=== PATIENT | male | born 1975 | race Caucasian/White ===

== ENCOUNTER 2024-11-29 11:59 | Observation (INO) | payer BC, SELFPAY ==
--- NOTE | 2024-11-29 12:07 | PC.NURSE ---
arrived by stretcher from [facility]
[2024-11-29 12:08] VITALS: BP 147/100; PULSE 59; RESP 19; TEMP 36.8; O2SAT 97; BMI 33.9
--- NOTE | 2024-11-29 12:12 | ECG_ITS ---
APPROVED REPORT Exam: Resting ECG HR:57 bpm ECG Measurements Heart Rate 57 AXES WY 152 P 11 QRSd 74 QRS 13 QT 407 T 23 QTc 402 Conclusion SINUS BRADYCARDIA Late r wave progression ABNORMAL ECG UNCONFIRMED REPORT Electronically signed by : Esau Stout MD 11/30/2024 08:08:36
[2024-11-29 12:14] VITALS: PULSE 60
[2024-11-29 12:42] LABS: Basophils # 0.1 K/mm3 (0-0.2); Eosinophils # 0.1 Kmm3 (0.0-0.4); Eosinophils % 1.8 % (0.1-12.0); Hematocrit 41.3 % (42.0-52.0); Hemoglobin 13.8 g/dL (14.1-18.0); Immature Granulocytes # 0.02 10^3uL; Immature Granulocytes % 0.3 %; Lymphocytes # 2.5 K/mm3 (0.7-4.5); Lymphocytes % 30.9 % (10-50); Mean Corpuscular HGB Conc 33.4 g/dL (31.8-35.4); Mean Corpuscular Hemoglobin 30.5 pg (27.0-31.2); Mean Corpuscular Volume 91.4 fl (80-94); Mean Platelet Volume 8.7 fl (7.4-10.4); Monocytes # 0.4 K/mm3 (0.1-1.0); Monocytes % 5.5 % (1.7-9.3); Neutrophils # 4.9 K/mm3 (1.8-7.8); Neutrophils % 60.5 % (37.0-80.0); Nucleated Red Blood Cells # 0 10^3/uL; Nucleated Red Blood Cells % 0 %; Platelet Count 290 K/mm3 (142-424); Red Blood Count 4.52 M/mm3 (4.60-6.20); Red Cell Distribution Width 13.3 % (11.5-17.5); Red Cell Distribution Width-SD 45.4 fL
[2024-11-29 13:00] VITALS: BP 145/99; PULSE 61; RESP 19; O2SAT 96
[2024-11-29 13:05] LABS: Alanine Aminotransferase 24 U/L (12-78); Albumin Level 4.3 g/dl (3.5-5.0); Albumin/Globulin Ratio 1.8 (1.1-1.8); Alkaline Phosphatase 140 U/L (38-126); Anion Gap 4.1 mEq/L (5-15); Aspartate Amino Transferase 25 U/L (17-59); Bilirubin,Total 0.5 mg/dl (0.2-1.3); Blood Urea Nitrogen 9 mg/dl (9-20); Calcium 9.4 mg/dl (8.4-10.2); Carbon Dioxide 30 mmol/L (22.0-30.0); Chloride 106 mmol/L (98-107); Chol/HDL Ratio 3.5 (1-3.5); Cholesterol 116 mg/dl (140-200); Creatinine Clearance Estimated 147 mL/min (50-200); Estimated Glomerular Filt Rate 80 ml/min (>60); GFR (African American) 97 ML/MIN (>60); Globulin 2.4 g/dL (1.3-3.2); Glucose 92 mg/dl (74-100); HDL Cholesterol 33 mg/dl (40-60); Magnesium 2.1 mg/dl (1.6-2.3); Potassium 4.1 mmoL/L (3.5-5.1); Sodium 136 mmol/L (136-145); Total Protein,Serum 6.7 g/dl (6.3-8.2); Triglycerides 113 mg/dl (30-150); VLDL Cholesterol 23 mg/dL (0-40)
--- NOTE | 2024-11-29 13:16 | HMH.PHAINT1 ---
Pharmacy Intervention Comments: HOME MEDICATION LIST VERIFIED USING LIST FROM OUTPATIENT PHARMACY AND PT INTERVIEW
[2024-11-29 13:17] LABS: NT Pro Brain Natriuretic Pep. 164 pg/mL (0-125)
--- NOTE | 2024-11-29 13:18 | CA_ITS ---
APPROVED REPORT EXAM: Comprehensive 2D, Doppler, and color-flow Echocardiogram [employer] Mechanic: Inez Valera CRT Ht: 6 ft 0 in Wt: 250lbs BSA: 2.34 BP: 147/100 mmHg Indications: Chest Pain, Shortness of Breath, Hyperlipidemia, Hypertension/HDD, Smoker, hx TIA 2D Dimensions LA Volume 49.00 mL LA Volume Index 20.060876 mL/m2 (M/F) 16-34 M-Mode Dimensions RVDd 2.96 cm (0.9-2.6) LA Diam 3.73 cm (1.9-4.0) LVDd 4.75 cm (3.5-5.7) LVDs 2.82 cm (3.5-5.7) IVSd 1.89 cm (0.6-1.1) PWd 0.93 cm (0.6-1.1) EF (Teich) 71.30% FS 40.60% EDV (Teich) 104.90 mL TAPSE 1.65 (<1.7) ESV (Teich) 30.10 mL LV Diastology E Decel Time 157 (160-240 msec) E/A Ratio 1.20 MED A' 9.90 cm/s LAT A' 10.20 cm/s Aortic Valve AO Peak GR. 5.20 mmHg Mitral Valve MV E Max Juanjose. 92.0 (40-130 cm/s) MV A Velocity 77.0 (40-130 cm/s) E/A Ratio 1.20 MV PHT 46.0 ms Pulmonary Valve PV Peak Velocity 84.0 (50-150 cm/s) Tricuspid Valve TR P. Velocity 352.00 cm/s RAP Estimate 10.00 mmHg RVSP 59.40 mmHg Left Ventricle The left ventricle is normal size. The left ventricular systolic function is normal. The left ventricular ejection fraction is within the normal range. There is increased overall thickness. There is normal LV segmental wall motion. The left ventricular diastolic function is normal. LVEF is 55%. Right Ventricle Right ventricle is mildly dilated. The right ventricular systolic function is normal. Atria The left atrium size is normal. The right atrium size is normal. There is no Doppler evidence of interatrial shunt. Aortic Valve Aortic valve opens well. There is no aortic valvular stenosis. No aortic regurgitation is present. Mitral Valve The mitral valve is normal in structure. No evidence of mitral valve stenosis. There is no mitral valve regurgitation noted. Tricuspid Valve Tricuspid valve is grossly normal in structure and function. Trace tricuspid regurgitation. There is insufficient TR jet to estimate RVSP. Pulmonic Valve The pulmonary valve is normal in structure. Trace pulmonic regurgitation. Great Vessels The aortic root is normal in size. IVC is normal in size and collapses >50% with inspiration. Pericardium There is no pericardial effusion. Other Information Study Quality: Fair Conclusion Normal biventricular systolic function. Mild RV dilation. No significant valvular stenosis or regurgitation. Electronically signed by : Danielle Rodriguez MD 11/29/2024 15:14:56
--- NOTE | 2024-11-29 13:28 | CT_ITS ---
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 A noncontrast coronary calcium scan was performed. A CT attenuation threshold of 130 Hounsfield units (HU) was used for the detection of calcium in contiguous voxels of 1 sq mm in area to be counted as individual lesions. Bolus tracking in the ascending aorta with a threshold of 180 HU was performed. Immediately afterwards, ECG synchronized cardiac CT was then performed from the cardiac base to apex using retrospective gating with ECG tube current modulation. A total of 85 mL of Isovue 370 mg/mL contrast medium was administered at 5 mL/sec followed by a saline flush using a biphasic injection protocol. A tube voltage of 120 KVp was used. The average heart rate at the time of acquisition was 63 bpm and regular. Image Reconstruction Transaxial images were reconstructed at 0.67 mm slide thickness. Data was reviewed interactively on an advanced workstation capable of 2 and 3-dimensional displays in all conventional reconstruction formats, including multiplanar reformations, maximum intensity projections, curved multiplanar reformations, and volume rendered reconstructions. When applicable, selected routine images describing the relevant coronary anatomy and pathology were saved and sent to PACS. Complications None Technical Quality Overall image quality was good. Coronary artery opacification was adequate. Total DLP (Dose-Length Product) is 1611.0 mGy-cm. The reported value represents the total of one or more individual components during the CT acquisition of this date and at this time, and as such, the same value may appear in more than one CT report depending on the interpreting/reporting physicians. COMPARISON None FINDINGS CT Coronary Calcium Scoring LMA (Left Main Artery) = 0 LAD (Left Anterior Descending) = 4 LCX (Left Coronary Circumflex) = 0 RCA (Right Coronary Artery) = 0 Total Calcium Score = 4 using the AJ-130 method. The observed calcium score of 4 is at 73rd percentile for subjects of the same age, sex, and race/ethnicity. The interpretation of the calcium heart score is based on the following continuum*: 0 = no calcified plaque detected (risk of coronary artery disease is very low ??? less than 5%) 1-10 = calcium detected in extremely minimal levels (risk of coronary diseases is still low ??? less than 10%) 11-100 = mild levels of plaque detected with certainty (mild or minimal narrowing of heart arteries is likely) 101-400 = definite,at least moderate levels of plaque detected (relatively high risk of a heart attack within 3-5 years) >401-999 = extensive levels of plaque detected (high risk of heart attack, high levels of vascular disease are present, high likelihood of at least one significant coronary narrowing) *The calcium heart score quantifies the burden of coronary calcification/plaque in the coronary arteries. The calcium heart score is not able to evaluate the presence or burden of non-calcified (i.e. soft) plaque. There is no identifiable calcification in the aortic valve, mitral annulus or mitral valve, pericardium, or myocardium. Coronary CT Angiography The coronary arterial system is left dominant. Quantitative Stenosis Grading: Left Main (LM): The left main originates normally from the left sinus of Valsalva. The LM bifurcates into the left anterior descending artery and left circumflex artery. The LM is patent with no evidence of atherosclerosis. Left Anterior Descending (LAD) and Diagonal Branches: The LAD gives off 3 diagonal branch(es). There is 1 focus of mixed calcified/noncalcified plaque in the proximal LAD, with < 25% luminal stenosis. There is no evidence of LAD-myocardial bridge. Left Circumflex (LCX) and Obtuse Marginals (OM): The LCX gives off 2 Obtuse Marginal (OM) branch(es). The LCX and its branches are patent with no evidence of atherosclerosis. Right Coronary Artery (RCA): The RCA originates normally from the right sinus of Valsalva. The RCA is a small caliber vessel. The RCA and its branches are patent with no evidence of atherosclerosis. Non-Coronary Cardiac Findings: Analysis of the left ventricular (LV) structure and function was performed after 3-D reconstruction of the LV from axial images, with user-corrected automatic contouring for assessment of LV volumes and user-defined reconstruction from oblique planes for measurement of 3-D cardiac structure and function. -The left ventricle systolic function is normal. -There is no left atrial appendage filling defect. Two right pulmonary veins and two left pulmonary veins drain normally into the left atrium. -No pericardial thickening or calcification. -Central and branch pulmonary arteries in the [id number] are unremarkable. -Thoracic aorta within the visualized thoracic aortic-branches in the [id number] is unremarkable. Extracardiac Structures No significant extra-cardiac findings. Note, however, that this study is focused on the cardiac findings. IMPRESSION -Presence of coronary calcification with an Agatston score = 4 using the AJ-130 method. -The observed calcium score of 4 is at 73rd percentile for subjects of the same age, sex, and race/ethnicity. -No evidence of significant flow-limiting atherosclerosis of the coronary arteries. -CAD-RADS 1. Management recommendations per ACC/AHA guidelines*, as clinically appropriate. *Recommendations: CAD RADS 0: Reassurance. Consider non-atherosclerotic causes of chest pain. CAD RADS 1: Consider non-atherosclerotic causes of chest pain. Consider preventive therapy and risk factor modification. CAD RADS 2: Consider non-atherosclerotic causes of chest pain. Consider preventive therapy and risk factor modification, particularly for patients with nonobstructive plaque in multiple segments. CAD RADS 3: Consider further functional testing. Consider symptom-guided anti-ischemic and preventive pharmacotherapy as well as risk factor modification per published guideline statements. CAD RADS 4A: Consider further functional testing or invasive coronary angiography with revascularization per published guideline statements. Consider symptom-guided anti-ischemic and preventive pharmacotherapy as well as risk factor modification per published guideline statements. CAD RADS 4B: Invasive coronary angiography recommended with revascularization per published guideline statements. Consider symptom-guided anti-ischemic and preventive pharmacotherapy as well as risk factor modification per published guideline statements. CAD RADS 5: Consider invasive angiography and/or viability assessment with revascularization per published guideline statements. Consider symptom-guided anti-ischemic and preventive pharmacotherapy as well as risk factor modification per published guideline statements. CRITICAL RESULT None COMMUNICATION Per this written report The coronary and cardiac findings of this CCTA were reviewed, reported, and signed by Noble Rodriguez MD (Facs Teacher) Conclusion Electronically signed by : Danielle Rodriguez MD 11/29/2024 14:32:14
[2024-11-29 13:29] LABS: Troponin I 0.01 ng/ml (0.00-0.034)
[2024-11-29 13:36] LABS: Thyroid Stimulating Hormone 2.21 uIU/mL (0.465-4.68)
--- NOTE | 2024-11-29 13:42 | P.CONCA_ITS ---
History of Present Illness History of Present Illness Consult date: 11/29/24 Requesting physician: Aung Lackey Consult reason: chest pain Chief complaint: chest pain History of present illness: This is a 49-year-old white gentleman who presented to the emergency department at [facility] with complaints of chest pain. He states that he was at work today and went outside to smoke when he was coming back up the stairs he said he had a sudden onset of weakness. He states that he felt like he was going to pass out but never had a syncopal episode. He states he just got really weak and this lasted for about 2 minutes and then he had sudden onset of chest pain. He describes this as a tightness sensation in the substernal aspect of his chest. It did not radiate. It was associated with shortness of breath. He rated this as 7 out of 10 in intensity. He states that this lasted until he arrived at [facility] and was treated with aspirin. He states that he was given 3 aspirin and a nitro glycerin sublingual and his chest pain did improve. He had a high-sensitivity troponin that was positive there so he was transferred here to [facility]. Since being here he denies any recurrence of his chest pain. His troponin here is negative. He denies any history of heart disease personally. He also denies any family history of MD. His mother does have atrial fibrillation and hypertension. The patient states that he does have high blood pressure that he does not check regularly. He also smokes 1 pack/day. [facility] Disclaimer: The information contained in this section may have been updated after the patient was seen, as this information can be updated by other users. Medical History (Updated 11/29/24 @ 13:46 by Rissa Lama APRN) Obesity SOB (shortness of breath) on exertion Smoker Hyperlipidemia Chest pain History of transient ischemic attack (TIA) Hypertension Surgical History (Updated 11/29/24 @ 12:29 by Rama Porter RN) History of appendectomy Family History (Updated 11/29/24 @ 13:50 by Rissa Lama APRN) Mother Other persistent atrial fibrillation Other Family history of hypertension Social History (Updated 11/29/24 @ 13:51 by Rissa Lama APRN) Smoking Status: Current every day smoker alcohol intake: never current occupational status: employed Travel in the last 8 weeks?: None Have you lived/traveled outside [place] in past 30 days?: No Contact w/someone who lives/traveled outside US past 30 days?: No Exposure to someone with infectious disease in past 14 days?: No Do you have a fever (greater than 100.4 F or 38 C)?: No Have you tested positive for COVID-19?: No Exposed to someone with COVID-19 in past 14 days?: No Do you have a sore throat?: No Do you have a cough?: No Do you have any weakness?: No Do you have any diarrhea?: No Are you experiencing any unusual bleeding?: No Do you have any muscle aches/pain?: No Do you have any abdominal pain?: No Are you experiencing loss of taste or smell?: No Review of Systems Review of Systems Review of systems:: pertinent systems reviewed and negative unless documented below Constitutional Constitutional: Reports system reviewed and no additional complaints, except as documented, Reports lethargy and Reports weakness Eyes Eyes: Reports system reviewed and no additional complaints, except as documented ENT Ears, Nose, Mouth, and Throat: Reports system reviewed and no additional compl aints, except as documented *Cardiovascular Cardiovascular: Reports system reviewed and no additional complaints, except as documented, Reports chest pain, Reports chest pain at rest, Reports chest pain with activity, Reports dyspnea and Reports dyspnea on exertion *Respiratory Respiratory: Reports system reviewed and no additional complaints, except as documented, Reports dyspnea and Reports dyspnea on exertion *Gastrointestinal Gastrointestinal: Reports system reviewed and no additional complaints, except as documented *Genitourinary Genitourinary: Reports system reviewed and no additional complaints, except as documented *Musculoskeletal Musculoskeletal: Reports system reviewed and no additional complaints, except as documented Integumentary/Breasts Skin/Breast: Reports system reviewed and no additional complaints, except as documented *Neurologic Neurologic: Reports system reviewed and no additional complaints, except as documented and Reports weakness Psychiatric Psychiatric: Reports system reviewed and no additional complaints, except as documented Endocrine Endocrine: Reports system reviewed and no additional complaints, except as doc umented Hematologic/Lymphatic Hematologic/Lymphatic: Reports system reviewed and no additional complaints, except as documented Allergic/Immunologic Allergic/Immunologic: Reports system reviewed and no additional complaints, except as documented Exam Data for Last 24 hours Vital signs and Labs for Last 24 Hours: Temp Pulse Resp BP Pulse Ox O2 Del Method 98.2 F 59 L 19 147/100 H 97 Room Air 11/29/24 12:08 11/29/24 12:08 11/29/24 12:08 11/29/24 12:08 11/29/24 12:08 11/29/24 12:20 Laboratory Results - last 24 hr 11/29/24 12:34: WBC 8.0, RBC 4.52 L, Hgb 13.8 L, Hct 41.3 L, MCV 91.4, MCH 30.5, MCHC 33.4, RDW 13.3, Plt Count 290, MPV 8.7, Neut % (Auto) 60.5, Lymph % (Auto) 30.9, Pinal % (Auto) 5.5, Eos % (Auto) 1.8, Baso % (Auto) 1.0, Neut # (Auto) 4.9, Lymph # (Auto) 2.5, Pinal # (Auto) 0.4, Eos # (Auto) 0.1, Baso # (Auto) 0.1, Sodium 136, Potassium 4.1, Chloride 106, Carbon Dioxide 30, Anion Gap 4.1 L, BUN 9, Creatinine 1.00, Estimated Creat Clear 147, Estimated GFR 80, Est GFR ( Amer) 97, Glucose 92, Calcium 9.4, Magnesium 2.1, Total Bilirubin 0.5, AST 25, ALT 24, Alkaline Phosphatase 140 H, Troponin I 0.01, NT-Pro-B Natriuret Pep 164 H, Total Protein 6.7, Albumin 4.3, Globulin 2.4, Albumin/Globulin Ratio 1.8, Triglycerides 113, Cholesterol 116 L, LDL Cholesterol Direct 51.50 L, VLDL Cholesterol 23, HDL Cholesterol 33 L, Cholesterol/HDL Ratio 3.5, Free T4 0.70 L I & O for Last 24 hours: Intake & Output 11/26/24 11/27/24 11/28/24 11/29/24 23:59 23:59 23:59 23:59 Weight 250 lb 5 oz Constitutional Constitutional: no acute distress and obese *Routine HEENT Exam Head: Present normocephalic and atraumatic ENT: Present mucous membranes moist *Routine Neck Exam Neck: Present supple, full ROM and normal carotid upstroke; Absent JVD, carotid bruit or lymphadenopathy *Routine Respiratory Exam Respiratory: Present CTA bilaterally, normal respiratory effort, able to speak in complete sentences and symmetric chest movement *Routine Cardiovascular Exam Cardiovascular: Present RRR, Normal S1 and Normal S2; Absent murmur or gallop *Routine Abdominal Exam Abdominal: Present soft and normoactive bowel sounds; Absent tenderness, distended or organomegaly *Routine Extremities Exam Extremities: Present full ROM, pulses intact and normal capillary refill; Absent cyanosis, clubbing or edema *Routine Skin Exam Skin: Present intact and warm; Absent erythema *Routine Neurological Exam Neurological: Present alert, oriented X3 and CN II-XII intact; Absent sensory deficit or motor deficit Routine Psychiatric Exam Psychiatric: Present normal affect Meds Home Medications and Allergies Home Medications ?Medication ?Instructions ?Recorded ?Confirmed ?Type aspirin 81 mg tablet 81 mg PO DAILY 11/29/24 11/29/24 History atorvastatin 80 mg tablet 80 mg PO DAILY 11/29/24 11/29/24 History cholecalciferol (vitamin D3) 50 50 mcg PO DAILY 11/29/24 11/29/24 History mcg (2,000 unit) tablet duloxetine 60 mg capsule,delayed 60 mg PO DAILY 11/29/24 11/29/24 History release hydroxyzine HCl 50 mg tablet 50 mg PO BID 11/29/24 11/29/24 History losartan 50 mg tablet 50 mg PO DAILY 11/29/24 11/29/24 History New Prescriptions to Start Prescriptions: Allergies Allergy/AdvReac Type Severity Reaction Status Date / Time amoxicillin AdvReac Hives Verified 11/29/24 12:16 Assessment and Plan *Assessment and plan (1) Chest pain: Status: Acute Qualifiers: Chest pain type: other chest pain Qualified Code(s): R07.89 - Other chest pain Category: Medical Code(s): R07.9 - Chest pain, unspecified (2) SOB (shortness of breath) on exertion: Status: Acute Category: Medical Code(s): R06.02 - Shortness of breath (3) Hypertension: Status: Acute Qualifiers: Hypertension type: primary hypertension Qualified Code(s): I10 - Essential (primary) hypertension Category: Medical Code(s): I10 - Essential (primary) hypertension (4) Hyperlipidemia: Status: Acute Qualifiers: Hyperlipidemia type: mixed hyperlipidemia Qualified Code(s): E78.2 - Mixed hyperlipidemia Category: Medical Code(s): E78.5 - Hyperlipidemia, unspecified (5) Smoker: Status: Acute Category: Social Hx Code(s): F17.200 - Nicotine dependence, unspecified, uncomplicated (6) History of transient ischemic attack (TIA): Status: Acute Category: Medical Code(s): Z86.73 - Personal history of transient ischemic attack (TIA), and cerebral infarction without residual deficits (7) Obesity: Status: Acute Qualifiers: Body mass index: BMI 30.0-30.9 Obesity classification: adult class 1 (BMI 30 - 34.9) Obesity type: due to excess calories Serious obesity comorbidity presence: without serious comorbidity Qualified Code(s): E66.811 - Obesity, class 1; E66.09 - Other obesity due to excess calories; Z68.30 - Body mass index [BMI] 30.0-30.9, adult Category: Medical Code(s): E66.9 - Obesity, unspecified Plan Plan: 1. The patient was transferred here from [facility] due to an elevated high-sensitivity troponin. His troponin is negative here at [facility]. Due to his chest pain and shortness of breath we will obtain an echocardiogram to evaluate his LV function. 2. We will also proceed with a CCTA to rule out ischemia due to his chest pain and elevated high-sensitivity troponin at [facility]. 3. His blood pressure is elevated. Will increase his losartan to 100 mg daily for better blood pressure control. 4. His LDL goal is less than 55. His LDL is 51. He is on a statin. 5. Tobacco cessation is highly advised and counseled. 6. Further recommendations will be made pending patient's response to treatment the results of his echocardiogram and CCTA today. Thank you for the opportunity to help participate in the care of this patient. Our recommendations and orders are Dr. Rodriguez. Addendum: CCTA shows: -Presence of coronary calcification with an Agatston score = 4 using the AJ-130 method. -The observed calcium score of 4 is at 73rd percentile for subjects of the same age, sex, and race/ethnicity. -No evidence of significant flow-limiting atherosclerosis of the coronary arteries. -CAD-RADS 1. Management recommendations per ACC/AHA guidelines*, as clinically appropriate. The patient is stable for discharge home today from a cardiac standpoint. His chest pain is noncardiac. He will need to follow-up in cardiology clinic in 2 weeks. The patient can be discharged on the following cardiac medications: Aspirin 81 mg daily, Lipitor 80 mg p.o. nightly, losartan 100 mg daily. Also recommend he go home on a PPI.
[2024-11-29] MEDS: NITROGLYCERIN 0.4MG SL TABLET SL (13:58)
[2024-11-29] MEDS: SODIUM CHLORIDE 0.9% 10ML SYR (RAD ONLY) 10 ML IV (14:11)
[2024-11-29] MEDS: 0.9 % SODIUM CHLORIDE 50 ML VIAL IV (14:11)
[2024-11-29] MEDS: IOPAMIDOL-370 (76%);100ML BOTTLE 85 ML IV (14:11)
--- NOTE | 2024-11-29 15:44 | EXP.HPDC ---
General Admission date:: 11/29/24 *Admission Date: 11/29/24 *Chief complaint: chest pain *History of present illness: This is a 49-year-old white gentleman who presented to the emergency department at [facility] with complaints of chest pain. He states that he was at work today and went outside to smoke when he was coming back up the stairs he said he had a sudden onset of weakness. He states that he felt like he was going to pass out but never had a syncopal episode. He states he just got really weak and this lasted for about 2 minutes and then he had sudden onset of chest pain. He describes this as a tightness sensation in the substernal aspect of his chest. It did not radiate. It was associated with shortness of breath. He rated this as 7 out of 10 in intensity. He states that this lasted until he arrived at [facility] and was treated with aspirin. He states that he was given 3 aspirin and a nitro glycerin sublingual and his chest pain did improve. He had a high-sensitivity troponin that was positive there so he was transferred here to [facility]. Since being here he denies any recurrence of his chest pain. His troponin here is negative. He denies any history of heart disease personally. He also denies any family history of RI. His mother does have atrial fibrillation and hypertension. The patient states that he does have high blood pressure that he does not check regularly. He also smokes 1 pack/day. [facility] Disclaimer: The information contained in this section may have been updated after the patient was seen, as this information can be updated by other users. Medical History (Updated 12/07/24 @ 10:07 by Drew Blackwell RN) Fatigue Obesity SOB (shortness of breath) on exertion Smoker Hyperlipidemia Chest pain History of transient ischemic attack (TIA) Hypertension Surgical History History of appendectomy Family History Mother Other persistent atrial fibrillation Other Family history of hypertension Social History Smoking Status: Current every day smoker alcohol intake: never current occupational status: employed Travel in the last 8 weeks?: None Other Medical History Have you received the Flu Vaccine for this season: No Have you received the Pneumonia Vaccine: No Review of Systems Constitutional Constitutional: Reports weakness *Neurologic Neurologic: Reports system reviewed and no additional complaints, except as documented and Reports weakness Exam Data for Last 24 hours Vital signs and Labs for Last 24 Hours: Temp Pulse Resp BP Pulse Ox O2 Del Method 98.2 F 61 19 145/99 H 96 Room Air 11/29/24 12:08 11/29/24 13:00 11/29/24 13:00 11/29/24 13:00 11/29/24 13:00 11/29/24 13:00 Laboratory Results - last 24 hr 11/29/24 12:34: WBC 8.0, RBC 4.52 L, Hgb 13.8 L, Hct 41.3 L, MCV 91.4, MCH 30.5, MCHC 33.4, RDW 13.3, Plt Count 290, MPV 8.7, Neut % (Auto) 60.5, Lymph % (Auto) 30.9, [place] % (Auto) 5.5, Eos % (Auto) 1.8, Baso % (Auto) 1.0, Neut # (Auto) 4.9, Lymph # (Auto) 2.5, Cortland # (Auto) 0.4, Eos # (Auto) 0.1, Baso # (Auto) 0.1, Sodium 136, Potassium 4.1, Chloride 106, Carbon Dioxide 30, Anion Gap 4.1 L, BUN 9, Creatinine 1.00, Estimated Creat Clear 147, Estimated GFR 80, Est GFR ( Amer) 97, Glucose 92, Calcium 9.4, Magnesium 2.1, Total Bilirubin 0.5, AST 25, ALT 24, Alkaline Phosphatase 140 H, Troponin I 0.01, NT-Pro-B Natriuret Pep 164 H, Total Protein 6.7, Albumin 4.3, Globulin 2.4, Albumin/Globulin Ratio 1.8, Triglycerides 113, Cholesterol 116 L, LDL Cholesterol Direct 51.50 L, VLDL Cholesterol 23, HDL Cholesterol 33 L, Cholesterol/HDL Ratio 3.5, TSH 2.21, Free T4 0.70 L I & O for Last 24 hours: Intake & Output 11/26/24 11/27/24 11/28/24 11/29/24 23:59 23:59 23:59 23:59 Weight 113.54 kg Constitutional Constitutional: no acute distress *Routine HEENT Exam Head: Present normocephalic Eye: Present EOMI and PERRL ENT: Present mucous membranes moist *Routine Neck Exam Neck: Present supple; Absent lymphadenopathy *Routine Respiratory Exam Respiratory: Present CTA bilaterally *Routine Cardiovascular Exam Cardiovascular: Present RRR *Routine Abdominal Exam Abdominal: Present soft and normoactive bowel sounds; Absent tenderness *Routine Rectal Exam Rectal:: deferred *Routine Genitalia Exam Genitalia:: deferred *Routine Extremities Exam Extremities: Absent cyanosis, clubbing or edema *Routine Skin Exam Skin: Present warm; Absent rash *Routine Neurological Exam Neurological: Present alert and oriented X3 Meds Home Medications and Allergies Home Medications ?Medication ?Instructions ?Recorded ?Confirmed ?Type aspirin 81 mg tablet 81 mg PO DAILY 11/29/24 12/07/24 History atorvastatin 80 mg tablet 80 mg PO DAILY 11/29/24 12/07/24 History cholecalciferol (vitamin D3) 50 50 mcg PO DAILY 11/29/24 12/07/24 History mcg (2,000 unit) tablet duloxetine 60 mg capsule,delayed 60 mg PO DAILY 11/29/24 12/07/24 History release hydroxyzine HCl 50 mg tablet 50 mg PO BID 11/29/24 12/07/24 History losartan 50 mg tablet 100 mg (2 x 50 mg) PO DAILY 30 11/29/24 12/07/24 Rx days #0 tabs pantoprazole 40 mg tablet,delayed 40 mg PO DAILY #30 tabs 11/29/24 12/07/24 Rx release (Protonix) carvedilol 6.25 mg tablet 6.25 mg PO BID 90 days #180 tabs 12/07/24 12/07/24 Rx New Prescriptions to Start Prescriptions: pantoprazole [Protonix] Aung Lackey Allergies Allergy/AdvReac Type Severity Reaction Status Date / Time amoxicillin AdvReac Hives Verified 12/07/24 09:49 Hospital Course Hospital Course Hospital Course: Aguilar Rodgers is a 49-year-old male who presented with chest pain as a transfer from [facility] and was admitted for the same. #Chest pain #Hypertension #GERD ? Cardiology consulted, s/p CCTA without occlusive disease noted. ECHO also showed normal biventricular function. ? Currently chest pain-free. Denies shortness of breath, fever/chills. Does endorse longstanding history of acid reflux. ? Started Protonix 40 mg. Continue aspirin, statin, losartan. ? Will follow-up with cardiology within 2 weeks. Results Data Completed and Pending Labs on day of discharge: Labs from last 24 hours 11/29/24 12:34 WBC 8.0 RBC 4.52 L Hgb 13.8 L Hct 41.3 L MCV 91.4 MCH 30.5 MCHC 33.4 RDW 13.3 Plt Count 290 MPV 8.7 Neut % (Auto) 60.5 Lymph % (Auto) 30.9 Cortland % (Auto) 5.5 Eos % (Auto) 1.8 Baso % (Auto) 1.0 Neut # (Auto) 4.9 Lymph # (Auto) 2.5 Cortland # (Auto) 0.4 Eos # (Auto) 0.1 Baso # (Auto) 0.1 Sodium 136 Potassium 4.1 Chloride 106 Carbon Dioxide 30 Anion Gap 4.1 L BUN 9 Creatinine 1.00 Estimated Creat Clear 147 Estimated GFR 80 Est GFR ( Amer) 97 Glucose 92 Calcium 9.4 Magnesium 2.1 Total Bilirubin 0.5 AST 25 ALT 24 Alkaline Phosphatase 140 H Troponin I 0.01 NT-Pro-B Natriuret Pep 164 H Total Protein 6.7 Albumin 4.3 Globulin 2.4 Albumin/Globulin Ratio 1.8 Triglycerides 113 Cholesterol 116 L LDL Cholesterol Direct 51.50 L VLDL Cholesterol 23 HDL Cholesterol 33 L Cholesterol/HDL Ratio 3.5 TSH 2.21 Free T4 0.70 L DS: Diagnosis Discharge Diagnosis (1) Chest pain: Status: Acute Code(s): R07.9 - Chest pain, unspecified Qualifiers: Chest pain type: other chest pain Qualified Code(s): R07.89 - Other chest pain (2) SOB (shortness of breath) on exertion: Status: Acute Code(s): R06.02 - Shortness of breath (3) Hypertension: Status: Acute Code(s): I10 - Essential (primary) hypertension Qualifiers: Hypertension type: primary hypertension Qualified Code(s): I10 - Essential (primary) hypertension (4) Hyperlipidemia: Status: Acute Code(s): E78.5 - Hyperlipidemia, unspecified Qualifiers: Hyperlipidemia type: mixed hyperlipidemia Qualified Code(s): E78.2 - Mixed hyperlipidemia (5) Smoker: Status: Acute Code(s): F17.200 - Nicotine dependence, unspecified, uncomplicated (6) History of transient ischemic attack (TIA): Status: Acute Code(s): Z86.73 - Personal history of transient ischemic attack (TIA), and cerebral infarction without residual deficits (7) Obesity: Status: Acute Code(s): E66.9 - Obesity, unspecified Qualifiers: Body mass index: BMI 30.0-30.9 Obesity classification: adult class 1 (BMI 30 - 34.9) Obesity type: due to excess calories Serious obesity comorbidity presence: without serious comorbidity Qualified Code(s): E66.811 - Obesity, class 1; E66.09 - Other obesity due to excess calories; Z68.30 - Body mass index [BMI] 30.0-30.9, adult Discharge Plan Disposition Patient Disposition: Home, Self-Care Condition: Fair Follow up Plan Follow up with: Rissa Lama APRN [Nurse Practitioner, Cardiology] - 12/12/24 1:30 pm Prescriptions/Medication Reconciliation: New pantoprazole [Protonix] 40 mg tablet,delayed release (DR/EC) 40 mg PO DAILY Qty: 30 0RF Continued atorvastatin 80 mg tablet 80 mg PO DAILY hydroxyzine HCl 50 mg tablet 50 mg PO BID aspirin 81 mg Tablet 81 mg PO DAILY duloxetine 60 mg capsule,delayed release(DR/EC) 60 mg PO DAILY cholecalciferol (vitamin D3) 50 mcg (2,000 unit) Tablet 50 mcg PO DAILY Changed losartan 50 mg tablet 100 mg PO DAILY 30 Days Qty: 0 0RF No Action carvedilol 6.25 mg tablet 6.25 mg PO BID 90 Days Qty: 180 3RF Rx Instructions: must administer with a meal/food Problem Reconciliation Problems Reviewed?: Yes Patient Discharge Instructions Patient Instructions: DI for Chest Pain Print Language: Greenlandic Providers Primary Care Provider: Andrea Upton Admit Provider: Aung Lackey Attending Provider: Aung Lackey
--- NOTE | 2024-11-30 10:11 | SW/DCPLANNER ---
Spoke with patient on the phone. Patient stated that he is doing very well and that he is having pain his leg. Patient stated that he is aware of his upcoming appointment. Patient stated that he is picking up his medicine today. Patient stated that he has no concerns or questions at this time. Joe Mccain
== END 2024-11-29 16:20 | disposition home or self-care (01) ==
PROVIDERS: Admitting Provider Student in an Organized Health Care Education/Training Program; PCP Internal Medicine; Visit Provider Student in an Organized Health Care Education/Training Program
DX: R07.89 Other chest pain (principal); R06.02 Shortness of breath; I10 Essential (primary) hypertension; E78.2 Mixed hyperlipidemia; K21.9 Gastro-esophageal reflux disease without esophagitis; F17.200 Nicotine dependence, unspecified, uncomplicated; R00.1 Bradycardia, unspecified; E66.811 Obesity, class 1; Z68.33 Body mass index [BMI] 33.0-33.9, adult; Z86.73 Personal history of transient ischemic attack (TIA), and cerebral infarction without residual deficits; Z79.899 Other long term (current) drug therapy; Z79.82 Long term (current) use of aspirin; Z88.0 Allergy status to penicillin; Z82.49 Family history of ischemic heart disease and other diseases of the circulatory system
CPT/HCPCS: 36415; 75574; 80053; 80061; 83735; 83880; 84439; 84443; 84484; 85025; 93005; 93306; G0378; Q9967

== ENCOUNTER 2025-01-24 08:23 | Outpatient (CLI) | payer BC, SELFPAY ==
--- OUTSIDE RECORDS SUMMARY | 2025-01-24 08:24 | XMS_ITS | Encounter Summary ---
Author Organization [facility] Address [address] [place] [address] Care Team Providers Care Computer Network And Systems Engineer Name Role Phone Aguilar Upton MD Primary Care Provider [phone]- [phone] Encounter Details Date Type Department Care Team (Late st Contact Info) Description 11/11/2024 Outside Procedure [facility] [address] [id number] Provider, External Social History Tobacco Use Types Packs/Day Years Used Date Smoking Tobacco: Never Assessed Sex and Gender Information Value Date Recorded Sex Assigned at Not on file Legal Sex Male 8:54 AM EST Gender Identity Not on file Sexual Orientation Not on file documented as of this encounter Plan of Treatment Not on file documented as of this encounter Procedures Procedure Name Priority Date/Time Associated Diagnosis Comments COLONOSCOPY 11/11/2024 10:57 AM EDT documented in this encounter Results * Colonoscopy (11/11/2024 10:57 AM EDT) Anatomical Region Laterality Modality Endoscopy 11/11/2024 10:1 6 AM EDT Impressions 11/11/2024 10:57 AM EDT Please see media tab for the result. Information added by interface. Narrative Procedure Note Jalil Richardson MD - 11/11/2024 IMPRESSION: Please see media tab for the result. Information added by interface. us External Provider GI PROCEDURE ORDERABLES Final Result documented in this encounter Visit Diagnoses Not on filedocumented in this encounter Care Teams Computer Network And Systems Engineer Relationship Specialty Start Date End Date Aguilar Upton MD [address] [facility] [address] [place] [address] PCP - General 11/10/24 documented as of this encounter
--- OUTSIDE RECORDS SUMMARY | 2025-01-24 08:24 | XMS_ITS | Clinical Summary ---
Author Organization Healthcare Address [address] [place] [address] Care Team Providers Care Appellate Court Clerk Name Role Phone Aguilar Upton MD Primary Care Provider [phone]- [phone] Medications bisacodyl (Dulcolax) 5 MG EC tablet Take all 4 tablets at 4 PM on day before colonoscopy . Do not crush, chew, or split. 4 tablet 5 Active polyethylene glycol (Golytely) 236 g solution SEE PHARMACY NOTE FOR PT INSTRUCTIONS 4000 mL 5 Active Encounters Date Type Department Care Team Description 11/16/2024 Results Follow-Up [facility] Medicine Specialties [address] [place] [address] Jalil Richardson MD 11/11/2024 Lab Requisition [facility] [address] [place] [address] Jalil Richardson MD Personal history of colon polyps, unspecified 11/11/2024 Outside Procedure [facility] [address] [place] [phone] Provider, External 11/10/2024 Travel 10/26/2024 Telephone [facility] Medicine [facility]ties [address] [place] [address] Delma Huddleston, RN Prior-authorization/ insurance Verification ([facility] PA/Bisacodyl EC 5MG DR/HWANG: [id number]) from Last 3 Months Social History Tobacco Use Types Packs/Day Years Used Date Smoking Tobacco: Never Assessed Sex and Gender Information Value Date Recorded Sex Assigned at Not on file Legal Sex Male 8:54 AM EST Gender Identity Not on file Sexual Orientation Not on file Plan of Treatment Health Maintenance Due Date Last Done Comments [facility]-Depression Screening 1977 [facility]-HIV Screening 1977 [facility]-Hepatitis C Screening 1977 [facility]-Infant/Child/Adol SDOH Screenings 1977 [facility]- SDOH Screenings 1995 [facility]-Adult SDOH Screenings 1995 [facility]-DTaP,Tdap,and Td Vaccine s (1 - Tdap) 1996 [facility]-Hepatitis B Vaccines (1 of 3 - 19+ 3-dose series) 1996 CT Colonography 2022 FIT-DNA 2022 FIT 2022 FOBT 2022 Sigmoidoscopy 2022 [id number] Vaccine (3 - season) 2024 10/31/2020, 10/02/2020 [facility]-Influenza Vaccine (Seaso n Ended) 2025 [facility]-Zoster Vaccines (1 of 2) 2027 Colonoscopy 11/11/2034 11/11/2024, 11/11/2024 [facility]-Colorectal Cancer Screening 11/11/2034 HPV Vaccines Aged Out No longer eligi ble based on patient's age to complete this topic [facility]-HIB Vaccines Aged Out No longer e ligible based on patient's age to complete this topic [facility]-Hepatitis A Vaccines Aged Out No longer eligible based on patient's age to complete this topic [facility]-IPV Vaccines Aged Out No longer e ligible based on patient's age to complete this topic [facility]-Pneumococcal Vaccine: Pediatrics (0 to 5 Years) and At-Risk Patients (6 to 49 Years) Aged Out No longer eligible b ased on patient's age to complete this topic [facility]-Rotavirus Vaccines Aged Out No lo nger eligible based on patient's age to complete this topic Procedures Procedure Name Priority Date/Time Associated Diagnosis Comments COLONOSCOPY 11/11/2024 10:57 AM EDT SURGICAL PATHOLOGY EXAM Routine 11/11/2024 Personal history of colon polyps, unspecified from Last 3 Months Results * Colonoscopy (11/11/2024 10:57 AM EDT) Anatomical Region Laterality Modality Endoscopy 11/11/2024 10:1 6 AM EDT Impressions 11/11/2024 10:57 AM EDT Please see media tab for the result. Information added by interface. Narrative Procedure Note Jalil Richardson MD - 11/11/2024 IMPRESSION: Please see media tab for the result. Information added by interface. us External Provider GI PROCEDURE ORDERABLES Final Result * Surgical Pathology Exam (11/11/2024) Case Report Surgical Pathology Case: [id number] Authorizing Provider: Jalil Richardson, Collected: 11/11/2024 Ordering Location: [facility] Lab Received: 11/11/2024 1349 Pathologist: Octavia Steiner MD Specimen: Sigmoid Colon, sigmoid polyps 11/14/2024 4:57 PM EDT [facility] Final Diagnosis LARGE INTESTINE, SIGMOID COLON, POLYPS, BIOPSY: - HYPERPLASTIC POLYPS (4). 11/14/2024 4:57 PM EDT [facility] at 1657 EDT Clinical Information Personal history of colon polyps, unspecified Four sessile polyps were found in the sigmoid colon. The polyps were 3 to 4 mm in size. 11/14/2024 4:57 PM EDT [facility] Gross Description A. SIGMOID POLYPS Received in formalin labeled s igmoid polyps , are 4 red-white soft fragments of tissue measuring from 0.5 cm to 0.9 cm in greatest dimension. Entirely submitted in cassette A1. Cold Time: 0 Venita Daniels 11/14/2024 4:57 PM EDT [facility] Note: A resident was involved in the service. I attest I examined the relevant preparations for the specimens and confirmed the diagnosis or interpretation. 11/14/2024 4:57 PM EDT [facility] Tissue Sigmoid colon structure / Unknown 11/11/2024 11/11/2024 1:49 PM EDT Jalil Richardson MD LAB PATHOLOGY ORDERABL ES Final Result [facility] [address] [place] [address] from Last 3 Months Insurance ANTH Care Teams Appellate Court Clerk Relationship Specialty Start Date End Date Aguilar Upton MD [address] [place] [address] [address] [place] [address] PCP - General 11/10/24
--- OUTSIDE RECORDS SUMMARY | 2025-01-24 08:24 | XMS_ITS | Continuity of Care Document ---
Author [facility] Address [address] [id number] Phone Allergies, Adverse Reactions, Alerts Allergen Type Severity Reaction Last Updated Verified Status amoxicillin Allergy Mild Hives October 10, 2024 9:15am Yes Active Social History Smoking Status Unknown if ever smoked Observation Status Observation Response Date of Response Sex Assigned At Male August 201977 Gender Identity Cisgender/Not transgender (findi ng) September 05, 2024 Cisgender/Not transgender (findi ng) September 05, 2024 Cisgender/Not transgender (findi ng) September 05, 2024 Cisgender/Not transgender (findi ng) September 05, 2024 Cisgender/Not transgender (findi ng) September 05, 2024 Family History Relationship Condition Age at Onset Recorded Date/T edvin mother Hypertension Unknown Atrial fibrillation Unknown Malignant neoplasm of breast Unknown father High blood cholesterol Unknown sister No acute medical problems Unknown Problems Active Problems Medical Problem Onset Date Status Nicotine dependence with current use Unknown Active Major depression Unknown Active Anxiety Unknown Active Hypertension Unknown Active Vitamin D deficiency Unknown Active Stroke Unknown Active Recurrent pancreatitis Unknown Active Medications Medication Status Dose Units Route Directions Qty Days St art Date Stop Date End Date Instructions Adherence Duloxetine 60 mg capsule,del ayed release(DR/ EC) Active 60 MG PO DAILY 2024 1:00am Atorvastati n (Lipitor) 80 mg tablet Active 80 MG PO Every Day At Bedtime 2024 1:00am Losartan-Hy drochloroth iazide 50-12.5 mg tablet Discont inued 1 TAB PO DAILY 2024 1:00am Febru michael 2024 10:40 am Aspirin (Adult Low Dose Aspirin) 81 mg tablet,gamaliel yed release (DR/EC) Active 81 MG PO DAILY 2024 1:00am Losartan 50 mg tablet Active 50 MG PO DAILY 90 October 10, 2024 12:00a m Losartan-Hy drochloroth iazide 100-12.5 mg tablet Discont inued 1 TAB PO DAILY 90 2024 1:00am Febru michael 2024 10:41 am Losartan-Hy drochloroth iazide 50-12.5 mg tablet Discont inued 1 TAB PO DAILY 90 2024 1:00am October 10, 2024 9:21a m Cholecalcif ines (Vitamin D3) 50 mcg (2,000 unit) tablet Active 50 MCG PO DAILY 90 2024 1:00am Insurance Providers Guarantor Aguilar Rodgers Address [address] [phone] Contact Info. Home Phone: Payer Policy Id Subscriber's Name Subscriber Id Effectiv e Date Expiration Date HARI SYED CT [id number] Aguilar Rodgers [id number] Plan of Treatment Future Tests Future scheduled test information is unavailable Pending Tests Test Name Ordered Date Scheduled Date Sodium Level October 10, 2024 9:22am Potassium Level October 10, 2024 9:22am Chloride Level October 10, 2024 9:22am Carbon Dioxide Level October 10, 2024 9:22am Anion Gap October 10, 2024 9:22am Blood Urea Nitrogen October 10, 2024 9:22am Creatinine October 10, 2024 9:22am Estimat Glomerular Filtration Rate October 10 9:22am BUN/Creatinine Ratio October 10, 2024 9:22am Glucose Level October 10, 2024 9:22am Calcium Level October 10, 2024 9:22am Basic Metabolic Panel October 10, 2024 9:22am Ma rch 2024 9:22am Future Visits Future appointment information is unavailable Referrals to Other Providers Referral information is unavailable Future Procedures Procedure Name Ordered Date Scheduled Date Influenza Vaccine October 10, 2024 9:13am Future Medications Future medication information is unavailable Patient Instructions Patient instructions are unavailable
--- OUTSIDE RECORDS SUMMARY | 2025-01-24 08:24 | XMS_ITS | Encounter Summary ---
Author Organization [facility] Address [address] [place] [address] Care Team Providers Care Back Tacker Name Role Phone Aguilar Upton MD Primary Care Provider +1- [phone] Encounter Details Date Type Department Care Team (Late st Contact Info) Description 11/11/2024 Lab Requisition [facility] [address] [place] [address] Jalil Richardson MD [address] [place] [address] Personal history of colon polyps, unspecified Social History Tobacco Use Types Packs/Day Years [...] Procedure Name Priority Date/Time Associated Diagnosis Comments SURGICAL PATHOLOGY EXAM Routine 11/11/2024 Personal history of colon polyps, unspecified documented in this encounter Results * Surgical Pathology Exam (11/11/2024) Case Report Surgical Pathology Case: [id number] Authorizing Provider: Jalil Richardson, Collected: 11/11/2024 Ordering Location: [facility] Received: 11/11/2024 2699 Pathologist: Octavia Steiner MD Specimen: Sigmoid Colon, sigmoid polyps 11/14/2024 4:57 PM EDT [facility] Final Diagnosis LARGE INTESTINE, SIGMOID COLON, POLYPS, BIOPSY: - HYPERPLASTIC POLYPS (4). 11/14/2024 4:57 PM EDT [facility] at 1657 EDT Clinical Information Personal history of colon polyps, unspecified Four sessile polyps were found in the sigmoid colon. The polyps were 3 to 4 mm in size. 11/14/2024 4:57 PM EDT [facility] Gross Description A. SIGMOID POLYPS Received in formalin labeled s igmoid polyps , are 4 red-white soft fragments of tissue measuring from 0.5 cm to 0.9 cm in greatest dimension. Entirely submitted in cassette A1. Cold Time: 0 Venita C Jeremiah 11/14/2024 4:57 PM EDT [facility] Note: A resident was involved in the service. I attest I examined the relevant preparations for the specimens and confirmed the diagnosis or interpretation. 11/14/2024 4:57 PM EDT [facility] Tissue Sigmoid colon structure / Unknown 11/11/2024 11/11/2024 1:49 PM EDT us Jalil Richardson MD LAB PATHOLOGY ORDERABL ES Final Result [facility] [address] [place] [address] documented in this encounter Visit Diagnoses Diagnosis Personal history of colon polyps, unspecified documented in this encounter Care Teams Back Tacker Relationship Specialty Start Date End Date Aguilar Upton MD [address] [facility] [address] [place] [address] PCP - General 11/10/24 documented as of this encounter
--- NOTE | 2025-01-24 09:00 | CA_ITS ---
FINAL REPORT TECHNIQUE: Ultrasound images of the kidneys were obtained. Duplex Doppler of the renal arteries, RAR and RI also obtained. Spectral analysis was performed. CLINICAL HISTORY: HTN COMPARISON: None FINDINGS: Limited images of the liver parenchyma demonstrate normal echogenicity. The right kidney measures 12.3 cm in length. It is normal echogenicity. There is no hydronephrosis. RI is 0.58-0.60. The renal artery/aortic ratio: 1.94. The left kidney measures 12.7 cm in length. It is normal echogenicity. There is no hydronephrosis. RI is 0.58-0.63. The renal artery/aortic ratio: 2.4. IMPRESSION: Velocities and renal artery/aortic ratio are normal on the right side, producing less than 50% stenosis. There is mild elevation of the peak velocity on the left of 193, with a normal renal artery/aortic ratio, consistent with less than 60%. Normal RI bilaterally. Would suggest CTA for further evaluation as clinically indicated. Reviewed, Interpreted and Dictated by Juan Cuello MD Transcribed by Brooke Blakely Authenticated and [facility]
--- NOTE | 2025-01-24 10:00 | US_ITS ---
FINAL REPORT TECHNIQUE: Ultrasound images of the kidneys and bladder were obtained. CLINICAL HISTORY: I10 - Essential (primary) hypertension COMPARISON: None FINDINGS: The right kidney measures 10.4 cm in length. It is normal in echogenicity. There is no hydronephrosis. The left kidney measures 13 cm in length. It is normal in echogenicity. There is no hydronephrosis. The urinary bladder is unremarkable. IMPRESSION: No hydronephrosis. Reviewed, Interpreted and Dictated by Juan Cuello MD Transcribed by Brooke Blakely Authenticated and [facility]
== END 2025-01-24 23:59 | disposition home or self-care (01) ==
LOC: RT 08:23
PROVIDERS: PCP Internal Medicine; Visit Provider Nurse Practitioner
DX: I70.1 Atherosclerosis of renal artery (principal); I10 Essential (primary) hypertension; R53.83 Other fatigue; R42 Dizziness and giddiness
CPT/HCPCS: 76770; 93976